=== PATIENT | female | born 1980 | race Caucasian/White ===

== ENCOUNTER 2017-03-09 17:29 | Emergency (ER) | payer BC ==
[2017-03-09 17:40] VITALS: BP 124/67
--- NOTE | 2017-03-09 19:44 | UC ---
Epistaxis Nasal HPI - HPI Summary HPI Summary: 3 days of worsening nasal pain, bridge and sides of nose painful, headache and nasal drainage no fevers - History of Current Complaint Chief Complaint: UCGeneralIllness Stated Complaint: NOSE PAIN Time Seen by Provider: 03/09/17 19:37 Hx Obtained From: Patient Hx Last Menstrual Period: 1 WEEK AGO ?: No Onset/Duration: Gradual Onset, Lasting Days, Worse Since - past 3 days Timing: Constant Severity Initially: Moderate Severity Currently: Moderate Pain Intensity: 7 Pain Scale Used: 0-10 Numeric Aggravating Factor(s): URI Alleviating Factor(s): Nothing Associated Signs And Symptoms: Positive: Negative - Allergies/Home Medications Allergies/Adverse Reactions: Allergies Allergy/AdvReac Type Severity Reaction Status Date / Time No Known Allergies Allergy Verified 03/09/17 17:41 PMH/Surg Hx/FS Hx/Imm Hx Previously Healthy: Yes - Surgical History Surgical History: None - Family History Known Family History: Positive: Hypertension - Social History Occupation: Employed Full-time Lives: With Family Alcohol Use: None Substance Use Type: None Smoking Status (MU): Never Smoked Tobacco - Immunization History Most Recent Influenza Vaccination: none Review of Systems Constitutional: Negative Skin: Negative Eyes: Negative ENT: Negative, Nasal Discharge Respiratory: Negative Cardiovascular: Negative Gastrointestinal: Negative Genitourinary: Negative Motor: Negative Neurovascular: Negative Musculoskeletal: Negative Neurological: Headache Psychological: Negative All Other Systems Reviewed And Are Negative: Yes Physical Exam Triage Information Reviewed: Yes Appearance: Well-Appearing, No Pain Distress, Well-Nourished Vital Signs: Initial Vital Signs Temp 98.2 F 03/09/17 17:39 Pulse 69 03/09/17 17:39 Resp 16 03/09/17 17:39 BP 124/67 03/09/17 17:39 Pulse Ox 99 03/09/17 17:39 Vital Signs Reviewed: Yes Eye Exam: Normal Eyes: Positive: Conjunctiva Clear ENT Exam: Normal ENT: Positive: Normal ENT inspection, Hearing grossly normal, Pharynx normal, Nasal congestion, Nasal drainage, TMs normal. Negative: Tonsillar swelling, Tonsillar exudate, Trismus, Muffled/hoarse voice Dental Exam: Normal Neck exam: Normal Neck: Positive: Supple, Nontender, No Lymphadenopathy Respiratory Exam: Normal Respiratory: Positive: Chest non-tender, Lungs clear, Normal breath sounds, No respiratory distress, No accessory muscle use Cardiovascular Exam: Normal Cardiovascular: Positive: RRR, No Murmur, Pulses Normal, Brisk Capillary Refill Musculoskeletal Exam: Normal Musculoskeletal: Positive: Strength Intact, ROM Intact, No Edema Neurological Exam: Normal Neurological: Positive: Alert, Muscle Tone Normal Psychological Exam: Normal Skin Exam: Normal Epistaxis Nasal Course/Dx - Course Course Of Treatment: Augmentin, flonase, increase fluids, follow with pcp - Differential Dx/Diagnosis Differential Diagnosis/HQI/PQRI: Foreign Body, Polyps, Sinusitis Provider Diagnoses: Acute Sinusitis Discharge - Discharge Plan Condition: Stable Disposition: HOME Prescriptions: Amoxicillin/Clavulanate TAB* [Augmentin TAB 875*] 875 mg PO BID #20 tab Fluticasone NASAL SPRAY 50MCG* [Flonase NASAL SPRAY 50MCG*] 2 spray BOTH NARES DAILY #1 btl Hydrocodone-Acetaminophen [Hydrocodone/Acetaminophen 5-325 mg] 0.5 - 1 tab PO Q6HR PRN #10 tab MDD 4 PRN Reason: facial pain Patient Education Materials: Oxymetazoline (Into the nose), Sinusitis (ED), Nasal Rinse (ED), How to Use Nasal [place] (ED) Referrals: Celeste Benedict MD [Primary Care Provider] - If Needed
== END 2017-03-09 19:55 | disposition home or self-care (01) ==
LOC: UCEAST 17:29
DX: J01.90 Acute sinusitis, unspecified (principal)
CPT/HCPCS: 99212; G0463

== ENCOUNTER 2017-06-21 17:42 | Emergency (ER) | payer BC ==
[2017-06-21 18:19] VITALS: BP 109/67
--- NOTE | 2017-06-21 18:30 | UC ---
Hand/Wrist HPI - HPI Summary HPI Summary: right wrist pain x 1 week no known injury , diffuse pain no swelling, no redness - History Of Current Complaint Chief Complaint: UCLowerExtremity Stated Complaint: RIGHT WRIST PAIN Time Seen by Provider: 06/21/17 18:21 Hx Obtained From: Patient Hx Last Menstrual Period: 06/18/17 Onset/Duration: Gradual Onset, Lasting Weeks - 1, Still Present Severity Initially: Moderate Severity Currently: Moderate Character Of Pain: Aching Aggravating Factor(s): Movement, Lifting, Flexion, Extension Alleviating: Rest, Ice Associated Signs And Symptoms: Negative: Swelling, Redness, Bruising, Fever, Weakness - Allergies/Home Medications Allergies/Adverse Reactions: Allergies Allergy/AdvReac Type Severity Reaction Status Date / Time No Known Allergies Allergy Verified 06/21/17 18:14 Home Medications: Home Medications Ibuprofen [Advil] 600 mg PO ONCE PRN 06/21/17 [History Confirmed 06/21/17] PMH/Surg Hx/FS Hx/Imm Hx Previously Healthy: Yes - Surgical History Surgical History: None - Family History Known Family History: Positive: Hypertension - Social History Alcohol Use: None Substance Use Type: None Smoking Status (MU): Former Smoker When Did the Patient Quit Smoking/Using Tobacco: 10 years ago - Immunization History Most Recent Influenza Vaccination: none Review of Systems Constitutional: Negative Skin: Negative Eyes: Negative ENT: Negative Respiratory: Negative Is Patient Immunocompromised?: No All Other Systems Reviewed And Are Negative: Yes Physical Exam Triage Information Reviewed: Yes Appearance: Well-Appearing, No Pain Distress, Well-Nourished Vital Signs: Initial Vital Signs Temp 98.1 F 06/21/17 18:15 Pulse 70 06/21/17 18:15 Resp 16 06/21/17 18:15 BP 109/67 06/21/17 18:15 Pulse Ox 99 06/21/17 18:15 Vital Signs Reviewed: Yes Eyes: Positive: Conjunctiva Clear ENT: Positive: Normal ENT inspection, Hearing grossly normal, Pharynx normal Neck exam: Normal Neck: Positive: Supple, Nontender, No Lymphadenopathy Respiratory: Positive: Chest non-tender, Lungs clear, Normal breath sounds Cardiovascular: Positive: RRR, No Murmur, Pulses Normal Musculoskeletal: Positive: Other: - right wrist : no swelling, no erythema, diffuse tenderness, normal strength Hand/Wrist Course/Dx - Differential Dx/Diagnosis Provider Diagnoses: right wrist strain Discharge - Discharge Plan Condition: Stable Disposition: HOME Prescriptions: Naproxen [Naprosyn 500 mg] 500 mg PO BID #20 tab Patient Education Materials: Wrist Injury (ED) Referrals: Celeste Benedict MD [Primary Care Provider] - 7 Days
--- NOTE | 2017-06-21 18:56 | RAD ---
HISTORY: Right wrist pain COMPARISONS: None VIEWS: 3, Frontal, lateral, and oblique views of the right wrist FINDINGS: BONE DENSITY: Normal. BONES: There is no displaced fracture. JOINTS: There is no arthropathy. ALIGNMENT: There is no dislocation. SOFT TISSUES: Unremarkable. OTHER FINDINGS: None. IMPRESSION: NO ACUTE OSSEOUS INJURY. IF SYMPTOMS PERSIST, RECOMMEND REPEAT IMAGING.
== END 2017-06-21 19:06 | disposition home or self-care (01) ==
LOC: UCCORT 17:42
DX: S66.911A Strain of unspecified muscle, fascia and tendon at wrist and hand level, right hand, initial encounter (principal); X58.XXXA Exposure to other specified factors, initial encounter; Y93.9 Activity, unspecified; Y92.9 Unspecified place or not applicable; Z87.891 Personal history of nicotine dependence
CPT/HCPCS: 99213; G0463